=== PATIENT | female | born 1985 | race African-American/Black ===

== ENCOUNTER 2022-07-17 16:55 | Emergency (ER) | payer SELFPAY ==
[2022-07-17] MEDS ORDERED: Ibuprofen 600 MG Tab PO ONE (19:30)
[2022-07-17] MEDS ORDERED: Prochlorperazine 10 MG Tab PO ONE (19:30)
[2022-07-17] MEDS ORDERED: Acetaminophen 500 MG Tab PO ONE (19:30)
[2022-07-17 20:17] LABS: CARBON DIOXIDE,CO2 22.8 mmol/L (21.0-32.0)
[2022-07-17 20:42] LABS: CORONAVIRUS COVID-19 NAA NEGATIVE (NEGATIVE); INFLUENZA A NAA NEGATIVE (NEGATIVE); INFLUENZA B NAA NEGATIVE (NEGATIVE); RESPIRATORY SYNCYTIAL VIR NAA NEGATIVE (NEGATIVE)
== END 2022-07-17 21:21 ==
LOC: MW.ED 16:55
DX: R51.9 Headache, unspecified (principal); B34.9 Viral infection, unspecified; Z20.822 Contact with and (suspected) exposure to COVID-19
CPT/HCPCS: 0241U; 36415; 80048; 81003; 85025; 93005; 99285; A9270; Q0164; 93010; 99283

== ENCOUNTER 2022-08-21 22:00 | Emergency (ER) | payer SELFPAY ==
[2022-08-21 22:50] LABS: BASOPHILS PERCENT AUTO 0.3 % (0.0-1.5); EOSINOPHILS ABSOLUTE AUTO 0.2 K/uL (0.0-0.7); EOSINOPHILS PERCENT AUTO 3.1 % (0.0-7.0); HEMATOCRIT 34.9 % (36.0-46.0); LYMPHOCYTES ABSOLUTE AUTO 2.8 K/uL (0.6-2.4); LYMPHOCYTES PERCENT AUTO 43.6 % (16.0-40.0); MEAN CORPUSCULAR HEMOGLOBIN 22.9 pg (27.0-32.0); MEAN CORPUSCULAR HGB CONC 31.5 g/dL (31.0-37.0); MEAN CORPUSCULAR VOLUME 72.6 fL (80.0-98.0); MONOCYTES ABSOLUTE AUTO 0.3 K/uL (0.0-0.8); MONOCYTES PERCENT AUTO 4.3 % (0.0-15.0); NEUTROPHILS ABSOLUTE AUTO 3.1 K/uL (1.4-5.7); NEUTROPHILS PERCENT AUTO 48.7 % (48.0-80.0); NRBC ABSOLUTE 0 K/uL; PLATELET COUNT,PLT 199 K/uL (150-400); RED BLOOD CELL COUNT 4.81 M/uL (4.30-5.90); WHITE BLOOD CELL COUNT,WBC 6.44 K/uL (4.0-11.0)
[2022-08-21 23:13] LABS: A/G RATIO 0.8 (0.9-1.6); ALANINE AMINOTRANSFERASE,ALT 19 IU/L (14-63); ALBUMIN 3.1 g/dL (3.4-5.0); ALKALINE PHOSPHATASE 83 U/L (46-116); ASPARTATE AMNIOTRANSFERASE,AST 16 IU/L (15-37); BILIRUBIN TOTAL 0.4 mg/dL (0.2-1.0); BLOOD UREA NITROGEN,BUN 14 mg/dL (7.0-18.0); CALCIUM 8.7 mg/dL (8.5-10.1); CARBON DIOXIDE,CO2 25.3 mmol/L (21.0-32.0); CHLORIDE,CL 103 mmol/L (98-107); CREATININE 0.7 mg/dL (0.6-1.0); GLUCOSE RANDOM 108 mg/dL (74-106); POTASSIUM,K 3.9 mmol/L (3.5-5.1); SODIUM,NA 139 mmol/L (136-145)
[2022-08-21 23:14] LABS: ESTIMATED GFR 113 mL/min (>60)
== END 2022-08-22 00:31 | disposition home or self-care (01) ==
LOC: MW.ED 22:00
DX: O20.0 Threatened abortion (principal); Z3A.08 8 weeks gestation of pregnancy
CPT/HCPCS: 36415; 76813; 76816-26; 80053; 84702; 85025; 86900; 86901; 99283; 99284

== ENCOUNTER 2023-06-19 05:47 | Inpatient (IN) | payer MEDICAID, OTHER ==
[2023-06-19] MEDS ORDERED: Sodium Chloride 0.9% 20 ML SDV IV PRN (05:48)
[2023-06-19] MEDS ORDERED: Sodium Chloride 0.9% 2.5 ML Syringe FLUSH PRN (05:48)
[2023-06-19] MEDS ORDERED: Sodium Chloride 0.9% 10 ML Syringe FLUSH PRN (05:48)
[2023-06-19] MEDS ORDERED: Oxytocin/0.9 % Sodium Chloride 30 UNIT/500 ML BAG IV SCH ×2 (06:00→22:15)
[2023-06-19] MEDS: Lactated Ringers 1,000 ML IV SCH (06:20)
[2023-06-19] MEDS ORDERED: Naloxone 0.4 MG/ML SDV IVPUSH PRN (07:05)
[2023-06-19] MEDS ORDERED: fentaNYL 100 MCG/2 ML SDV IVPUSH PRN (07:05)
[2023-06-19] MEDS ORDERED: Acetaminophen/oxyCODONE 325-5 MG Tab PO PRN (07:05)
[2023-06-19] MEDS ORDERED: droPERidol 5 MG/2 ML SDV IVPUSH PRN (07:05)
[2023-06-19] MEDS ORDERED: ePHEDrine 50 MG/ML SDV IVPUSH PRN (07:05)
[2023-06-19] MEDS ORDERED: Metoclopramide 10 MG/2 ML SDV IVPUSH PRN (07:05)
[2023-06-19] MEDS ORDERED: Ondansetron 4 MG/2 ML SDV IVPUSH PRN ×3 (07:05→22:03)
[2023-06-19] MEDS ORDERED: HYDROmorphone 1 MG/ML Syringe IVPUSH PRN (07:05)
[2023-06-19] MEDS ORDERED: Morphine 2 MG/ML SYRINGE IVPUSH PRN (07:05)
[2023-06-19] MEDS ORDERED: fentaNYL 50 MCG/ML SDV IVPUSH PRN (07:05)
[2023-06-19] MEDS ORDERED: Albuterol 0.083% 2.5 MG/3 ML Neb Soln NEB PRN (07:05)
[2023-06-19] MEDS ORDERED: Phenylephrine 1% 10 MG/ML SDV ONE (07:14)
[2023-06-19] MEDS ORDERED: Ropivacaine 0.5% 5 MG/ML 30 ML SDV ONE (07:14)
[2023-06-19] MEDS ORDERED: Tranexamic Acid 1,000 MG/10 ML Vial ONE ×2 (07:14→07:21)
[2023-06-19] MEDS ORDERED: Dexamethasone 4 MG/ML 5 ML MDV ONE (07:14)
[2023-06-19] MEDS ORDERED: Ketorolac 30 MG/ML SDV ONE (07:14)
[2023-06-19] MEDS ORDERED: dexmedeTOMIDine HCl 200 MCG/2 ML SDV ONE (07:14)
[2023-06-19] MEDS ORDERED: Oxytocin 10 Units/1 ML SDV ONE (07:14)
[2023-06-19] MEDS ORDERED: ceFAZolin 1 GM Vial ONE (07:14)
[2023-06-19] MEDS ORDERED: Ondansetron 4 MG/2 ML SDV ONE (07:14)
[2023-06-19] MEDS ORDERED: Morphine PF 10 MG/10 ML SDV ONE (07:15)
[2023-06-19] MEDS ORDERED: fentaNYL 100 MCG/2 ML SDV ONE (07:15)
[2023-06-19] MEDS ORDERED: Calcium Chloride 10% 1 GM/10 ML Syringe ONE (07:15)
[2023-06-19] MEDS ORDERED: ePHEDrine 50 MG/ML SDV ONE (07:21)
[2023-06-19 08:03] LABS: HEMATOCRIT 33.8 % (37.0-47.0); HEMOGLOBIN 9.9 g/dL (12.0-16.0); MEAN CORPUSCULAR HEMOGLOBIN 21.1 pg (28.0-32.0); MEAN CORPUSCULAR HGB CONC 29.3 g/dL (32.0-36.0); MEAN CORPUSCULAR VOLUME 72.1 fL (83.0-99.0); NRBC ABSOLUTE 0.19 K/uL (0.00-0.02); NRBC PERCENT 2.5 /100WBC (0.0-0.2); PLATELET COUNT,PLT 129 K/uL (150-400); RED BLOOD CELL COUNT 4.69 M/uL (4.10-5.30); WHITE BLOOD CELL COUNT,WBC 7.71 K/uL (3.9-11.3)
[2023-06-19] MEDS: Acetaminophen 1,000 MG in Premix Bag 1 BAG IV SCH (11:30)
[2023-06-19] MEDS: Ketorolac 30 MG/ML SDV IVPUSH SCH ×2 (11:51→22:20)
[2023-06-19] MEDS: Citric Acid/Sodium Citrate Solution 30 ML Cup PO ONE (14:10)
[2023-06-19] MEDS ORDERED: Bisacodyl 10 MG Supp RECTAL PRN (22:03)
[2023-06-19] MEDS ORDERED: diphenhydrAMINE 50 MG/ML SDV IVPUSH PRN (22:03)
[2023-06-19] MEDS ORDERED: Methylergonovine 0.2 MG/1 ML Amp IM PRN (22:03)
[2023-06-19] MEDS ORDERED: Oxytocin 10 Units/1 ML SDV IM PRN (22:03)
[2023-06-19] MEDS ORDERED: Lanolin 100% Cream 7 GM Tube TOP PRN (22:03)
[2023-06-19] MEDS ORDERED: Misoprostol 200 MCG Tab RECTAL PRN (22:03)
[2023-06-19] MEDS ORDERED: Lactated Ringers 1,000 ML IV SCH (22:15)
[2023-06-20] MEDS: diphenhydrAMINE 50 MG/ML SDV IVPUSH PRN (00:08)
[2023-06-20 06:49] LABS: HEMATOCRIT 30.7 % (37.0-47.0)
[2023-06-20] MEDS: Docusate Sodium 100 MG Cap PO SCH (08:35)
[2023-06-20] MEDS: Ibuprofen 800 MG Tab PO PRN (17:39)
[2023-06-20] MEDS: Acetaminophen/oxyCODONE 325-5 MG Tab PO PRN (20:07)
[2023-06-21] MEDS: Acetaminophen/oxyCODONE 325-5 MG Tab PO PRN (02:47)
[2023-06-22] MEDS ORDERED: NIFEdipine 30 MG Tab.ER PO SCH (09:30)
[2023-06-22] MEDS: NIFEdipine 30 MG Tab.ER PO SCH (11:02)
[2023-06-23] MEDS ORDERED: NIFEdipine 30 MG Tab.ER PO SCH (09:00)
== END 2023-06-22 12:12 | disposition home or self-care (01) | DRG 788 ==
LOC: MW.OB 05:47
PROVIDERS: ADMIT Obstetrics & Gynecology Obstetrics; ATTEND Obstetrics & Gynecology
PROC: 0T9B70Z Drainage of Bladder with Drainage Device, Via Natural or Artificial Opening (ICD-10-PCS; 2023-06-19)
PROC: 10D00Z1 Extraction of Products of Conception, Low, Open Approach (ICD-10-PCS; principal; 2023-06-19 08:00)
DX: O34.211 Maternal care for low transverse scar from previous cesarean delivery (principal); O99.214 Obesity complicating childbirth; O13.4 Gestational [pregnancy-induced] hypertension without significant proteinuria, complicating childbirth; Z3A.38 38 weeks gestation of pregnancy; Z37.0 Single live birth
CPT/HCPCS: 01961; 36415; 64488; 85014; 85018; 85027; 86592; 86850; 86900; 86901; A9270-GY; J0131; J0690; J1100; J1200; J1885; J2274; J2371; J2405; J2590; J2795; J3010; J3490; J7120